=== PATIENT | female | born 1990 | race Caucasian/White ===

== ENCOUNTER 2018-12-10 17:52 | Emergency (ER) | payer SELFPAY, MEDICAID ==
[2018-12-10 19:01] LABS: URINE BLOOD (Dip) POC Trace-lysed (NEGATIVE); URINE GLUCOSE (Dip) POC Negative (NEGATIVE); URINE KETONES (Dip) POC Negative (NEGATIVE); URINE LEUKOCYTE EST (Dip) POC 2+ (NEGATIVE); URINE NITRITE (Dip) POC Negative (NEGATIVE); URINE TOTAL PROTEIN POC Negative (NEGATIVE)
[2018-12-10] MEDS: PHENAZOPYRIDINE 100 MG TAB PO (20:02)
[2018-12-10] MEDS: CEPHALEXIN 500 MG CAP PO (20:02)
== END 2018-12-10 20:13 | disposition home or self-care (01) ==
LOC: FTE 17:52
DX: N30.00 Acute cystitis without hematuria (principal)
CPT/HCPCS: 81003; 81025; 99284